=== PATIENT | male | born 1990 | race Caucasian/White ===

== ENCOUNTER 2020-01-01 11:19 | Emergency (ER) | payer OTHER, SELFPAY ==
[2020-01-01 12:25] VITALS: BP 115/60; PULSE 80; RESP 20; TEMP 36.8; O2SAT 98
--- NOTE | 2020-01-01 13:02 | ED.LOWEXIN ---
HPI - Extremity Injury (Lower) General Chief Complaint: Extremity Injury, Lower Stated Complaint: Swollen Left Leg Time Seen by Provider: 01/01/20 12:50 Source: patient and RN notes reviewed Mode of arrival: ambulatory Limitations: no limitations History of Present Illness HPI Narrative: Patient presents todayComplaining of swelling, pain to the left leg. Reports symptoms are significantly worse today. He is also noted a purple color to his leg that started today. He reports some tingling in his toes as well. He has tried no interventions for pain prior to arrival. No chest pain or shortness of breath. No history of PEs or DVTs. History of cellulitis 3 to 4 months ago in the left lower leg. Pain exists mostly in the thigh and increases with walking. MD complaint: other (Left leg pain) Related Data Home Medications Medication Instructions Recorded Confirmed methadone 10 mg PO Q6H 01/01/20 01/01/20 Allergies Allergy/AdvReac Type Severity Reaction Status Date / Time No Known Allergies Allergy Verified 01/01/20 12:42 Review of Systems Review of Systems: Narrative: CONSTITUTIONAL: Denies body aches, fever, chills, or sweats. EYES: Denies visual changes, redness, or discharge. ENT: Denies rhinorrhea, congestion, sore throat, or otalgia. CARDIOVASCULAR: Denies chest pain, palpitations, or edema. RESPIRATORY: Denies cough or dyspnea. GASTROINTESTINAL: Denies abdominal pain, nausea, vomiting, or diarrhea. GENITOURINARY: Denies dysuria or hematuria. SKIN: Denies rash, itching, or wounds. MUSCULOSKELETAL: Denies back pain, joint pain. +Left leg pain, swelling, and discoloration NEUROLOGIC: Denies headache, numbness, or weakness.+Tingling in the toes PSYCH: Denies depression or anxiety. PMFSH Comments At time of signature, I have reviewed and agree with nursing past medical, surgical, social and family history unless otherwise noted. Please see nursing chart for further information. There is no relevant family history pertinent to the presenting complaint Exam Narrative: Exam Narrative: GENERAL: Well-appearing, well-nourished, and in no acute distress. HEAD: Normocephalic, atraumatic. EYES: EOMI. No redness or drainage. Conjunctivae normal. ENT: Mucous membranes pink and moist. NECK: Normal AROM. CHEST: No respiratory distress. MUSCULOSKELETAL: No bony tenderness. EXTREMITIES: Left leg:Duskiness to the left thigh with 4-second capillary refill and tenderness with palpation.2-3+ pitting edema to the left ankle with some duskiness to the ankle and foot. Calf and foot seem to be nontender to palpation.Distal sensation is intact. Pedal pulse is strong and has been marked.Full AROM. Patient is ambulatory with increased pain. SKIN: Warm, dry, no rash. NEURO: No focal deficits. Alert and oriented x3. Gait steady. PSYCH: Normal affect. No signs of depression or anxiety. Course Course Emergency Course: Due to the duskiness of patient's leg, and concern for clot. Report was given to the triage nurse and [facility].Patient has been instructed to drive to the ER directly from urgent care without stopping. He ambulated to his car. Vital Signs Vital signs: Vital Signs Temperature 98.2 F 01/01/20 12:25 Pulse Rate 80 01/01/20 12:25 Respiratory Rate 20 01/01/20 12:25 Blood Pressure 115/60 01/01/20 12:25 Pulse Oximetry 98 01/01/20 12:25 Temperature 98.2 F 01/01/20 12:25 Pulse Rate 80 01/01/20 12:25 Respiratory Rate 20 01/01/20 12:25 Blood Pressure 115/60 01/01/20 12:25 Pulse Oximetry 98 01/01/20 12:25 Reviewed Transfer Transfered to: [facility] Transfer rationale: Left leg swelling, pain, duskiness Accepting physician: Shahid MDM - Extremity Injury (Lower) Differential Diagnosis Differential diagnosis: Likely other (Arterial clot, venous clot, thrombophlebitis, cellulitis) Critical Care Time Critical Care Time Critical Care Time: No Discharge
== END 2020-01-01 13:01 | disposition short-term general hospital (02) ==
PROVIDERS: Emergency Provider Nurse Practitioner; PCP Internal Medicine
DX: M79.662 Pain in left lower leg (principal); M79.89 Other specified soft tissue disorders
CPT/HCPCS: 99202; G0463